=== PATIENT | male | born 1975 | race Caucasian/White ===

== ENCOUNTER 2023-05-09 08:31 | Emergency (ER) | payer BC, SELFPAY ==
[2023-05-09 08:36] VITALS: BP 189/99
--- NOTE | 2023-05-09 09:16 | ED.GENMED ---
History of Present Illness
<YULIET Rudolph - Last Filed: 05/09/23 09:23>
General
Chief Complaint: Fall
Source: patient
Exam Limitations: none
Time Seen by Provider: 05/09/23 09:04
Nursing documentation reviewed up to this point in time: agreed with
Travel History
Have you had any contact with someone who has COVID-19?: No
Do you have any symptoms of coronavirus? Fever > 100 degrees, chills, cough, shortness of breath, sore throat, loss of taste or smell, muscle aches, or headache?: No
History of Present Illness
History of Present Illness:
47 year old male presents for fall on ice x few hours ago. Patient admits to hitting head on ice. Patient went to urgent care prior to coming to ED where they bandaged a laceration on vertex scalp. Patient admits to minor headache. Patient denies
pain, paresthesias, dizziness.
<Dustin Perez DO - Last Filed: 05/09/23 09:39>
Review of Systems
All Other Systems: Not applicable
EENT: Reports no symptoms
Respiratory: Reports no symptoms
Cardiac: Reports no symptoms
ABD/GI: Reports no symptoms
Musculoskeletal: Reports no symptoms
Skin: Reports no symptoms
Neurological: Denies dizzy, headache or weakness
Phy Exam
<YULIET Rudolph - Last Filed: 05/09/23 09:23>
General Physical Exam
General Presentation: well appearing
General age: appears stated age
General Skin: warm
General Habitus: normal
General Mental: alert
General Hydration: appears well hydrated
<Dustin Perez DO - Last Filed: 05/09/23 09:39>
Physical Exam
Physical Exam:
Physical Exam
General: no apparent distress, not acutely ill
Neck: No posterior neck pain full range of motion of the cervical spine, no tongue bite, 3 cm slightly jagged horizontal laceration on the left posterior
Heart: Regular
Lungs: No respiratory distress
Neuro: alert and oriented. no focal neurological deficits
Skin: no rash
Psychiatric: well kept. interactive and cooperative
Extremities: No edema
Course
<YULIET Rudolph - Last Filed: 05/09/23 09:23>
Vital Signs
Initial and Last Documented VS:
Initial Vital Signs
Temp Pulse Resp BP Pulse Ox
98.7 F 89 18 189/99 95
05/09/23 08:36 05/09/23 08:36 05/09/23 08:36 05/09/23 08:36 05/09/23 08:36
Last Documented Vital Signs
Temp Pulse Resp BP Pulse Ox
98.7 F 89 18 189/99 95
05/09/23 08:36 05/09/23 08:36 05/09/23 08:36 05/09/23 08:36 05/09/23 08:36
<Dustin Perez DO - Last Filed: 05/09/23 09:39>
Vital Signs
Initial and Last Documented VS:
Initial Vital Signs
Temp Pulse Resp BP Pulse Ox
98.7 F 89 18 189/99 95
05/09/23 08:36 05/09/23 08:36 05/09/23 08:36 05/09/23 08:36 05/09/23 08:36
Last Documented Vital Signs
Temp Pulse Resp BP Pulse Ox
98.7 F 89 18 189/99 95
05/09/23 08:36 05/09/23 08:36 05/09/23 08:36 05/09/23 08:36 05/09/23 08:36
<Dustin Perez DO - Last Filed: 05/09/23 09:39>
MDM/Problems Addressed
Differential Diagnosis Includes:
Laceration slip and fall abrasion very low clinical suspicion for cerebral hemorrhage or skull fracture
MDM/Problems Addressed:
Laceration
Chronic conditions affecting care:
Prior MA not on blood thinners per the patient including no aspirin or Plavix
<Dustin Perez DO - Last Filed: 05/09/23 09:39>
*Pulse Oximetry
Patient hypoxic: no
*Critical Care Note
Total Time (30-74mins, 75-104mins- exclusive of procedures): Not Applicable
<Dustin Perez DO - Last Filed: 05/09/23 09:39>
Update Note
Update Note:
Update patient well-appearing not intoxicated no distracting injury no C-spine injury by [employer], GCS 15, does have a wound, went over options with the patient he is elected glue
ED Attending Note
<YULIET Rudolph - Last Filed: 05/09/23 09:23>
-
Portions of this chart may have been created with voice recognition software.� Occasional wrong word or��sound alike� substitutions may have occurred due to the inherent limitations of voice recognition software.
Discharge Plan
Departure
Patient Disposition: Home (Routine Discharge)
Date of Disposition: 05/09/23
Time of Disposition: 09:36
Patient with high blood pressure during this ER visit?: No
Condition: Good
Discharge Problem:
Laceration of scalp
Instructions: Laceration Repair With Glue (DC), Head Injury in Adults (DC)
Referrals:
Robson Edwards MD [Family Provider] -
Activity Restrictions/Additional Instructions:
Keep wound dry for the next few days, do not use any Vaseline type products on it
Return to the ER if headaches, nausea vomiting, seizures or any other concerns
== END 2023-05-09 10:14 | disposition home or self-care (01) ==
LOC: EMR 08:31
PROVIDERS: EMERGENCY PHYSICIAN Emergency Medicine; FAMILY PHYSICIAN Internal Medicine
DX: S01.01XA Laceration without foreign body of scalp, initial encounter (principal); R51.9 Headache, unspecified; W00.0XXA Fall on same level due to ice and snow, initial encounter; I25.2 Old myocardial infarction
CPT/HCPCS: 99282